=== PATIENT | male | born 1970 | race Caucasian/White ===

== ENCOUNTER 2017-01-26 20:56 | Emergency (ER) | payer BC ==
[~2017-01-26] VITALS: Ht 165.1 cm; Wt 72.4 kg
[2017-01-26 20:58] VITALS: TEMP 36.6; Ht 165.1 cm; Wt 72.4 kg
[2017-01-26] MEDS ORDERED: MULT-506 PO (21:31)
--- NOTE | 2017-01-26 22:06 | EMERGENCY ROOM VISIT NOTE ---
History Report prepared by Migue: John Mcnamara Under the Supervision of: Dr. Hernán Hopkins D.O. First contact with patient: 21:49 Chief Complaint: TESTICULAR PAIN Stated Complaint: POSSIBLE HERNIA Nursing Triage Summary: Pt states he has noticed increased pressure in left testicle over last 48 hrs. Mild protrusion noted to left suprapubic area, denies pain or discomfort with palpation. History of Present Illness The patient is a 46 year old male who presents to the Emergency Room with complaints of intermittent "achiness" in the left testicle that he first experienced a couple of months ago while showering. Since the first onset of this achiness he has attempted to workout multiple times. He states that exercising and lifting may have intensified his symptoms. His pain is now worsened by sitting in certain positions. He denies any urinary symptoms. Source of History: patient Onset: A couple of months ago. Position: other (Genitourinary) Quality: ache Timing: intermittent Modifying Factors (Worsening): other (Sitting in certain positions) Associated Symptoms: No urinary symptoms Review of Systems See HPI for pertinent positives and negatives. A total of ten systems were reviewed and were otherwise negative. Past Medical & Surgical Denies any past medical/surgical history. Family History Diabetes mellitus FH: cancer Social History Smoking Status: Never Smoker Drug Use: none Marital Status: Housing Status: lives with significant other Occupation Status: unemployed Current/Historical Medications Scheduled Multivitamin (Multivitamin), 1 TAB PO DAILY Allergies Coded Allergies: Citric Acid (Verified Allergy, Intermediate, Body swelling, 01/26/17) Sodium Bicarbonate (Verified Allergy, Intermediate, Body swelling, 01/26/17) Chlorpheniramine (Unverified Allergy, Unknown, 10/01/09) Phenylpropanolamine (Unverified Allergy, Unknown, 10/01/09) Salicylates (Unverified Allergy, Unknown, 10/01/09) Physical Exam Vital Signs Date Time Temp Pulse Resp B/P (MAP) Pulse Ox O2 Delivery O2 Flow Rate FiO2 01/26/17 20:58 36.6 69 18 132/90 98 Room Air Physical Exam GENERAL: Awake, alert, well-appearing, in no distress HENT: Normocephalic, atraumatic. Oropharynx unremarkable. EYES: Normal conjunctiva. Sclera non-icteric. NECK: Supple. No nuchal rigidity. FROM. No JVD. RESPIRATORY: Clear to auscultation. CARDIAC: Regular rate, normal rhythm. Extremities warm and well perfused. Pulses equal. ABDOMEN: Soft, non-distended. No tenderness to palpation. No rebound or guarding. No masses. RECTAL: Deferred. MUSCULOSKELETAL: Chest examination reveals no tenderness. The back is symmetrical on inspection without obvious abnormality. There is no CVA tenderness to palpation. No joint edema. LOWER EXTREMITIES: Calves are equal size bilaterally and non-tender. No edema. No discoloration. NEURO: Normal sensorium. No sensory or motor deficits noted. SKIN: No rash or jaundice noted. : Palpable defect in the right inguinal canal. Palpable defect in the left inguinal canal. Testicular exam is normal. Medical Decision & Procedures ED Course 2156: The patient was evaluated in room C2B. A complete history and physical exam was performed. 2204: After a discussion at length with the patient at bedside the patient is in agreement with the treatment plan. The patient is ready for discharge. Medical Decision Differential diagnosis include: Hernia, incarcerated hernia, groin lymph node. Patient given information on hernia and need for follow-up with the surgeon. There is no current incarcerated strangulated hernia on exam patient seems to have bilateral inguinal hernias on my examination. Impression Primary Impression: Hernia, inguinal, bilateral Scribe Attestation The scribe's documentation has been prepared under my direction and personally reviewed by me in its entirety. I confirm that the note above accurately reflects all work, treatment, procedures, and medical decision making performed by me. Departure Information Dispostion Home / Self-Care Prescriptions Ibuprofen (Motrin) 800 Mg Tab 800 MG PO Q8H Y for Pain for 5 Days, #15 TAB Prov: Hernán Hopkins, 01/26/17 Referrals No Doctor, Assigned (PCP) Iza Casarez MD Patient Instructions ED Hernia Inguinal, [facility]
[2017-01-26] MEDS ORDERED: IBUP-1428 PO (22:10)
[2017-01-26 22:29] VITALS: BP 124/64; PULSE 72; O2SAT 98
== END 2017-01-26 22:30 | disposition home or self-care (01) ==
LOC: C.EDB 20:57 → C.EDC 22:30
DX: K40.20 Bilateral inguinal hernia, without obstruction or gangrene, not specified as recurrent (principal); Z83.3 Family history of diabetes mellitus